=== PATIENT | female | born 1955 | race Caucasian/White ===

== ENCOUNTER 2019-10-07 19:47 | Emergency (ER) | payer MEDICAID ==
[~2019-10-07] VITALS: Ht 160 cm; Wt 49.0 kg
[2019-10-07 19:51] VITALS: Ht 160 cm; Wt 49.0 kg
[2019-10-07 20:48] LABS: BASOPHIL % 0.2 % (0-2); PLATELET COUNT 221 x10^3mcL (130-400); RED CELL DISTRIBUTION WIDTH 12.2 % (11.5-14.5)
[2019-10-07 21:05] LABS: CALCIUM 8.8 mg/dL (8.5-10.1); CARBON DIOXIDE 29.5 mmol/L (21-32); CHLORIDE SERUM 100 mmol/L (98-107); CREATININE SERUM 0.8 mg/dL (0.6-1.0); GFR1 > 60 mL/min; GLUCOSE SERUM 136 mg/dL (74-106); POTASSIUM SERUM 3.7 mmol/L (3.5-5.1); SODIUM SERUM 137 mmol/L (136-145)
[2019-10-07 21:06] LABS: ALKALINE PHOSPHATASE 226 U/L (46-116); ALT/SGPT 194 U/L (14-59); AST/SGOT 340 U/L (15-37); BILIRUBIN TOTAL 0.9 mg/dL (0.20-1.00); LIPASE 69 IU/L (73-393); TOTAL PROTEIN, SERUM 7.9 g/dL (6.4-8.2)
[2019-10-08 01:59] VITALS: BP 132/93
== END 2019-10-08 01:59 | disposition home or self-care (01) ==
LOC: ED 19:47
PROVIDERS: Specialist
DX: R10.816 Epigastric abdominal tenderness (principal); R74.0 Nonspecific elevation of levels of transaminase and lactic acid dehydrogenase [LDH]; R11.2 Nausea with vomiting, unspecified; I10 Essential (primary) hypertension; E11.9 Type 2 diabetes mellitus without complications; M19.90 Unspecified osteoarthritis, unspecified site; Z90.89 Acquired absence of other organs; Z90.49 Acquired absence of other specified parts of digestive tract
CPT/HCPCS: J2405; J3010; J3490; J7030; Q0092